=== PATIENT | male | born 1960 | race Caucasian/White ===

== ENCOUNTER 2022-05-02 06:54 | Emergency (ER) | payer MEDICARE, MEDICAID, SELFPAY ==
[2022-05-02 07:02] VITALS: BP 148/89; PULSE 90; RESP 18; TEMP 36.9; O2SAT 99
[2022-05-02] MEDS: Cephalexin 500 MG CAP PO (07:29)
--- NOTE | 2022-05-02 07:37 | ED.GENADUL_ITS ---
Discharge Plan Disposition Patient Disposition: HOME Condition: Improving Discharge Details Clinical Impression: Laceration of toe ED Provider: Scot Rosales Home Meds and New Rx's Prescriptions: New cephalexin 500 mg capsule 500 mg PO QID 7 Days Qty: 28 0RF cephalexin 500 mg capsule 500 mg PO QID 5 Days Qty: 20 0RF No Action acetaminophen 325 mg Tablet 650 mg PO Q6H PRN lidocaine 4 % Adhesive Patch,Medicated 1 patch TOPICAL DAILY Rx Instructions: right shoulder sevelamer HCl 800 mg Tablet 800 mg PO AC allopurinol 100 mg Tablet 50 mg PO DAILY pantoprazole 20 mg Tablet,Delayed Release (Dr/Ec) 40 mg PO DAILY magnesium hydroxide 400 mg/5 mL Suspension 30 ml PO DAILY PRN sodium bicarbonate 650 mg Tablet 650 mg PO TID bisacodyl [Dulcolax (bisacodyl)] 10 mg Suppository 10 mg CA DAILY Fleet Enema 19-7 gram/118 mL Enema 118 ml CA DAILY ibuprofen 200 mg Tablet 400 mg PO Q6H PRN camphor-menthol 0.5-0.5 % Lotion 1 applic TOPICAL TID PRN Kristel-Kristen 0.8 mg Tablet 1 tab PO DAILY simethicone 125 mg Tablet 125 mg PO Q6H PRN betamethasone dipropionate 0.05 % Ointment 1 applic TOPICAL BID colestipol 1 gram Tablet 2 g PO BID Multivitamin w/Minerals, Iron Tablet 1 tab PO DAILY escitalopram oxalate 5 mg Tablet 5 mg PO DAILY cholecalciferol (vitamin D3) 25 mcg (1,000 unit) Tablet 25 mcg PO DAILY Discharge Instructions Instructions: Laceration (ED) Additional Instructions: Please follow-up with your primary care physician. Please return to emergency department if you develop any signs of worsening bleeding or infection. Medical Decision Making 60-year-old male history of diabetes, CKD on dialysis, wheelchair-bound, left lower extremity amputation, presents after lacerating third and fourth digit of right foot on metal plate attached to wheelchair, third toe laceration hemostatic on arrival with good scab formation, fourth toe laceration mildly gaping with venous oozing, wounds irrigated, no foreign bodies appreciated, 2 simple interrupted 4-0 Vicryl sutures applied to fourth toe laceration due to chronic diabetic neuropathy patient did not have sensation to wound sites and did not require local anesthetic, skin glue applied to both wounds, good hemostasis, given diabetic status was started on empiric antibiotics, tetanus booster updated. Patient to follow-up with his home nursing staff who will change his lower extremity dressings, is going to dialysis this morning. Home care instructions and return precautions given. HPI General Date/Time Provider Initiated Documentation: 05/02/22 07:06 . HPI Narrative: 61-year-old male history of diabetes, left lower extremity amputation, presents after accidentally lacerating 2 of his toes on a piece of metal on his motorized wheelchair. Patient is on dialysis and is intermittently heparinized, had a fair amount of bleeding before arrival seems to be slowing down at this time. Unknown last tetanus shot. Related Data Home Medications Medication Instructions Recorded Confirmed acetaminophen 325 mg tablet 650 mg PO Q6H PRN 05/02/22 05/02/22 allopurinol 100 mg tablet 50 mg PO DAILY 05/02/22 05/02/22 betamethasone dipropionate 0.05 % 1 applic topical BID 05/02/22 05/02/22 topical ointment bisacodyl 10 mg rectal suppository 10 mg CA DAILY 05/02/22 05/02/22 (Dulcolax (bisacodyl)) camphor-menthol 0.5 %-0.5 % lotion 1 applic topical TID PRN 05/02/22 05/02/22 cephalexin 500 mg capsule 500 mg PO QID 5 days #20 caps 05/02/22 cephalexin 500 mg capsule 500 mg PO QID 7 days #28 caps 05/02/22 cholecalciferol (vitamin D3) 25 25 mcg PO DAILY 05/02/22 05/02/22 mcg (1,000 unit) tablet colestipol 1 gram tablet 2 g PO BID 05/02/22 05/02/22 escitalopram oxalate 5 mg tablet 5 mg PO DAILY 05/02/22 05/02/22 geriatric gxygudcb-vele-xqdg 1 tab PO DAILY 05/02/22 05/02/22 ibuprofen 200 mg tablet 400 mg PO Q6H PRN 05/02/22 05/02/22 lidocaine 4 % topical patch 1 patch topical DAILY 05/02/22 05/02/22 magnesium hydroxide 400 mg/5 mL 30 ml PO DAILY PRN 05/02/22 05/02/22 oral suspension pantoprazole 20 mg tablet,delayed 40 mg PO DAILY 05/02/22 05/02/22 release sevelamer HCl 800 mg tablet 800 mg PO AC 05/02/22 05/02/22 simethicone 125 mg tablet 125 mg PO Q6H PRN 05/02/22 05/02/22 sodium bicarbonate 650 mg tablet 650 mg PO TID 05/02/22 05/02/22 sodium phosphates 19 gram-7 118 ml CA DAILY 05/02/22 05/02/22 gram/118 mL enema (Fleet Enema) vitamin B complex-vitamin C-folic 1 tab PO DAILY 05/02/22 05/02/22 acid 0.8 mg tablet (Kristel-Kristen) Previous Rx's Medication Instructions Recorded cephalexin 500 mg capsule 500 mg PO QID 5 days #20 caps 05/02/22 cephalexin 500 mg capsule 500 mg PO QID 7 days #28 caps 05/02/22 Allergies Allergy/AdvReac Type Severity Reaction Status Date / Time No Known Allergies Allergy Unverified 05/02/22 07:08 General Stated Complaint: Laceration SABI: 4 Review of Systems Narrative: Review of Systems Constitutional: negative Eyes: negative ENT: negative Cardiovascular: negative Respiratory: negative Gastrointestinal: negative : negative Musculoskeletal: negative Skin: 2 lacerations Neurologic: negative Psych: negative PFSH All Active Problems (Updated 05/02/22 @ 07:42 by Scot Rosales MD) Laceration of toe (Acute) Social History Smoking/Tobacco Use Status: Never Smoking risk assessment performed?: Yes Alcohol Intake: former Substance use type: does not use Do you feel safe at home: Yes Do you feel safe in your relationship?: Yes Exam Narrative Exam Narrative: Physical Examination General: alert, awake, cooperative, resting comfortably, no acute distress HEENT: normocephalic, atraumatic; PERRL, EOM intact, conjunctiva normal; no nasal discharge; moist mucous membranes, oral and pharyngeal mucosa normal, tolerating secretions Neck: supple, trachea midline; full ROM Chest: normal to inspection Respiratory: normal respiratory effort, speaking in full sentences, clear to auscultation, no wheezing, rales or rhonchi Cardiac: regular rate, regular rhythm, S1S2 intact, no murmurs rubs or gallops GI: abdomen soft, non-tender, non-distended; no palpable mass or hepatosplenomegaly Skin: 2 cm superficial laceration to plantar aspect of fourth toe of right foot, 1 cm superficial laceration to plantar aspect of third toe right foot, the laceration of the third toe is hemostatic not gaping already has formed a good scab, the laceration on the fourth toe has slow venous oozing and was mildly gaping, no foreign bodies appreciated Neuro: AAOx3, normal speech, moving all extremities Extremities: See skin exam Psych: Appropriate mood and affect Course Vital Signs Vital signs: Vital Signs Temperature 36.9 C 05/02/22 07:02 Pulse 90 05/02/22 07:02 Respiratory Rate 18 05/02/22 07:02 Blood Pressure 148/89 H 05/02/22 07:02 Pulse Oximetry 99 05/02/22 07:02 Temperature 36.9 C 05/02/22 07:02 Temperature Source Temporal Artery Scan 05/02/22 07:02 Pulse 90 05/02/22 07:02 Respiratory Rate 18 05/02/22 07:02 Respiratory Effort Non-Labored 05/02/22 07:07 Blood Pressure 148/89 H 05/02/22 07:02 Blood Pressure Position Sitting 05/02/22 07:02 Pulse Oximetry 99 05/02/22 07:02 Oxygen Delivery Method Room Air 05/02/22 07:02 Oxygen Flow Rate 0 05/02/22 07:02 Pain Level 0 05/02/22 07:02 Procedures Laceration Laceration 1: Site: lower extremity (3rd and 4th toes, plantar) Side (If applicable): right Size (cm): 2 Description: linear Depth: simple, single layer Pre-repair: wound explored and irrigated extensively Skin layer closed with: vicryl Size (cm): 4-0 Number of sutures: 2
== END 2022-05-02 08:19 | disposition home or self-care (01) ==
PROVIDERS: Emergency Provider Emergency Medicine; PCP Family Medicine
DX: S91.114A Laceration without foreign body of right lesser toe(s) without damage to nail, initial encounter (principal); W26.8XXA Contact with other sharp object(s), not elsewhere classified, initial encounter
CPT/HCPCS: 12001; 90471

== ENCOUNTER 2022-07-25 15:09 | Outpatient (REF) | payer MEDICARE, MEDICAID, SELFPAY ==
[2022-07-25 13:23] LABS: Abs Immature Grans 0.07 10^3/uL (0.0-0.06); Absolute Basophil Count 0.04 10^3/uL (0.0-0.2); Absolute Eosinophil Count 0.27 10^3/uL (0.0-0.7); Absolute Monocyte Count 0.58 10^3/uL (0.1-0.8); Absolute Neutrophil Count 6.49 10^3/uL (1.2-6.7); Basophils % 0.4; Eosinophils % 2.8; HCT 32.1 % (40.0-50.0); HGB 9.9 g/dL (13.5-17.5); Immature Grans % 0.7; Lymphocytes % 22.8; MCH 30.6 pg (27.0-33.0); MCHC 30.8 % (32.0-36.0); MCV 99 fL (80-95); MPV 10.3 fL (8.0-11.0); Neutrophils % 67.3; Platelet Count 159 10^3/uL (130-400); RBC 3.24 10^6/uL (4.36-5.78); RDW 16.4 % (11.8-14.1); RDW-SD 59.4 fL; WBC 9.65 10^3/uL (4.4-10.8)
[2022-07-25 13:36] LABS: ALT 21 U/L (16-63); AST 21 U/L (15-37); Albumin 3.2 g/dL (3.4-5.0); Alkaline Phosphatase 113 U/L (46-116); Anion Gap 10.7 mmol/L (3-11); BUN 66 mg/dL (7-18); Bilirubin, Total 0.5 mg/dL (0.2-1.0); CO2 24.3 mmol/L (21.0-32.0); Calcium 8.8 mg/dL (8.5-10.1); Chloride 105 mmol/L (98-107); Estimated GFR 10.26 (mL/min/1.73m2); Glucose 126 mg/dL (74-106); Magnesium 1.7 mg/dL (1.8-2.4); NT-proBNP 1613 pg/mL (<300); Potassium 5.3 mmol/L (3.5-5.1); Sodium 140 mmol/L (136-145); Total Protein 7.7 g/dL (6.4-8.2)
[2022-07-25 14:05] LABS: CREATININE 5.8 mg/dL (0.70-1.30)
== END 2022-07-25 15:10 | disposition home or self-care (01) ==
LOC: LBN 15:09
PROVIDERS: PCP Family Medicine; Visit Provider Family Medicine
DX: I50.9 Heart failure, unspecified (principal)
CPT/HCPCS: 80053; 83735; 83880; 85025

== ENCOUNTER 2022-11-23 11:19 | Outpatient (CLI) | payer MEDICARE, MEDICAID, SELFPAY ==
--- NOTE | 2022-11-23 | DI.RAD_ITS ---
Exam(s) XR CHEST 2V PA LATERAL EXAM: XR CHEST 2V PA LATERAL CLINICAL HISTORY: CHEST PAIN TECHNIQUE: 2D digital imaging was performed of the chest. Two images were obtained. PA and lateral views were obtained. COMPARISON: No exams were available for comparison FINDINGS: MEDIASTINUM: Normal. HEART: Normal. PULMONARY VASCULATURE: Normal. LUNGS: Linear infiltrates are seen in the left lung base. PLEURAL SPACE: There is a left pleural effusion present. No right pleural effusion. No pneumothorax . BONE:Within normal limits for the patient's age. OTHER FINDINGS:The tip of the dual lumen catheter appears in good position. IMPRESSION: Left pleural effusion and left basilar atelectasis and/or pneumonia. DATA REPOSITORY: RADIATION DOSE DELIVERED:
== END 2022-11-23 11:39 ==
PROVIDERS: PCP Family Medicine; Visit Provider Family Medicine
DX: R07.89 Other chest pain (principal); J90 Pleural effusion, not elsewhere classified; R91.8 Other nonspecific abnormal finding of lung field
CPT/HCPCS: 71046

== ENCOUNTER 2023-05-07 16:53 | Outpatient (REF) | payer MEDICARE, MEDICAID, SELFPAY ==
[2023-05-07 19:43] LABS: Vitamin D 25 Total 32.6 ng/mL (30-100)
== END 2023-05-07 16:54 | disposition home or self-care (01) ==
LOC: LBN 16:53
PROVIDERS: PCP Family Medicine; Visit Provider Family Medicine
DX: E44.0 Moderate protein-calorie malnutrition (principal)
CPT/HCPCS: 82306

== ENCOUNTER 2023-12-25 04:17 | Emergency (ER) | payer MEDICARE, MEDICAID, SELFPAY ==
[2023-12-25] VITALS (38 sets, daily range): BP systolic 104–151; BP diastolic 36–127; PULSE 35–97; RESP 15–27; TEMP 37.1; O2SAT 88–95
--- NOTE | 2023-12-25 04:15 | RT.EKG_ITS ---
APPROVED REPORT Exam: Resting ECG Reason for Exam: LOW PULSE Patient Location: E HR:46 bpm ECG Measurements Heart Rate 46 AXIS NM 300 P 29 QRSd 159 QRS -59 QT 530 T -6 QTc 462 Conclusion bradycardia...rate< 60 Atrial premature complexes...SV complexes w/ short R-R intvls Prolonged NM interval...NM >230, V-rate 30- 49 Right bundle branch block...QRSd>120, terminal axis(90,270) Inferior infarct, old...Q >35mS, II III aVF indeterminate rhythm, consider 3rd degree block with PACs
--- NOTE | 2023-12-25 04:45 | RT.EKG_ITS ---
APPROVED REPORT Exam: Resting ECG Reason for Exam: bradycardia Patient Location: E HR:39 bpm ECG Measurements Heart Rate 39 AXIS OH 273 P 0 QRSd 182 QRS -34 QT 551 T 5 QTc 447 Conclusion Prolonged OH interval...OH >230, V-rate 30- 49 Right bundle branch block...QRSd>120, terminal axis(90,270) Probable lateral infarct, old...Q>35mS, abnormal ST-T, V5-6 I aVL indeterminate rhythm, consider 3rd degree block with PACs
[2023-12-25 05:12] LABS: Abs Immature Grans 0.06 10^3/uL (0.0-0.06); Absolute Basophil Count 0.06 10^3/uL (0.0-0.2); Absolute Eosinophil Count 0.12 10^3/uL (0.0-0.7); Absolute Neutrophil Count 9.27 10^3/uL (1.2-6.7); Basophils % 0.5; Eosinophils % 0.9; HCT 33.6 % (40.0-50.0); HGB 10.6 g/dL (13.5-17.5); Immature Grans % 0.5; Lymphocytes % 17.2; MCH 30.9 pg (27.0-33.0); MCHC 31.5 % (32.0-36.0); MCV 98 fL (80-95); MPV 9.5 fL (8.0-11.0); Monocytes % 9.5; Neutrophils % 71.4; Platelet Count 216 10^3/uL (130-400); RBC 3.43 10^6/uL (4.36-5.78); RDW 16.3 % (11.8-14.1); WBC 12.99 10^3/uL (4.4-10.8)
[2023-12-25 05:14] LABS: Absolute Lymphocyte Count 2.23 10^3/uL (1.2-3.4); Absolute Monocyte Count 1.23 10^3/uL (0.1-0.8)
--- NOTE | 2023-12-25 05:15 | W.ED.GENAD ---
Discharge Plan Disposition Patient Disposition: Transfer-Acute Inpatient Care Specific Acute Inpt Facility: [facility] Condition: Critical Discharge Details Clinical Impression: Complete heart block, ESRD (end stage renal disease) Primary Care Provider: Terrence Sam ED Provider: Michelle Carlisle Home Meds and New Rx's Prescriptions: No Action acetaminophen 325 mg Tablet 650 mg PO Q6H PRN lidocaine 4 % Adhesive Patch,Medicated 1 patch TOPICAL DAILY Rx Instructions: right shoulder sevelamer HCl 800 mg Tablet 800 mg PO AC allopurinol 100 mg Tablet 50 mg PO DAILY pantoprazole 20 mg Tablet,Delayed Release (Dr/Ec) 40 mg PO DAILY magnesium hydroxide 400 mg/5 mL Suspension 30 ml PO DAILY PRN sodium bicarbonate 650 mg Tablet 650 mg PO TID bisacodyl [Dulcolax (bisacodyl)] 10 mg Suppository 10 mg IN DAILY Fleet Enema 19-7 gram/118 mL Enema 118 ml IN DAILY ibuprofen 200 mg Tablet 400 mg PO Q6H PRN camphor-menthol 0.5-0.5 % Lotion 1 applic TOPICAL TID PRN Kristel-Kristen 0.8 mg Tablet 1 tab PO DAILY simethicone 125 mg Tablet 125 mg PO Q6H PRN betamethasone dipropionate 0.05 % Ointment 1 applic TOPICAL BID colestipol 1 gram Tablet 2 g PO BID Multivitamin w/Minerals, Iron Tablet 1 tab PO DAILY escitalopram oxalate 5 mg Tablet 5 mg PO DAILY cholecalciferol (vitamin D3) 25 mcg (1,000 unit) Tablet 25 mcg PO DAILY furosemide 80 mg tablet 80 mg PO BID ketoconazole 2 % shampoo 1 applic TOPICAL Q14D glucagon 1 mg kit Insta-Glucose 77.4% sevelamer carbonate [Renvela] 800 mg tablet lidocaine HCl [Aspercreme (lidocaine HCl)] 4 % cream 1 applic topical ONCE guaifenesin 100 mg/5 mL liquid 200 mg PO ONCE loperamide 2 mg capsule 2 mg PO Q6H PRN Discharge Instructions Referrals: Terrence Sam [Primary Care Provider] - [facility] General Mode of arrival: ambulatory. Date/Time Provider Initiated Documentation: 12/25/23 04:55. Limitations to Documentation: no limitations. Information obtained by: patient. HPI Narrative: 63yo M with ESRD dialysis M/W/F, DM, wheelchair-bound, left lower extremity amputation, presenting for low heart rate. [facility] was found to have HR in mid 30's. Patient reports staff wanted to call ambulance but he refused, drove himself to the ED. He reports his HR is usually in the 40's-50's. He denies any symptoms including chest pain, shortness of breath, lightheadedness, syncope, presyncope. He denies prior cardiac history, states he does not have a community placement worker. He is otherwise in his usual state of health with no fevers, chills, rash, nausea, vomiting, abdominal pain, numbness, tinlging, weakness, or other concerns. Related Data Home Medications Medication Instructions Recorded Confirmed acetaminophen 325 mg tablet 650 mg PO Q6H PRN 05/02/22 12/25/23 allopurinol 100 mg tablet 50 mg PO DAILY 05/02/22 12/25/23 betamethasone dipropionate 0.05 % 1 applic topical BID 05/02/22 12/25/23 topical ointment bisacodyl 10 mg rectal suppository 10 mg IN DAILY 05/02/22 12/25/23 (Dulcolax (bisacodyl)) camphor-menthol 0.5 %-0.5 % lotion 1 applic topical TID PRN 05/02/22 12/25/23 cholecalciferol (vitamin D3) 25 25 mcg PO DAILY 05/02/22 12/25/23 mcg (1,000 unit) tablet colestipol 1 gram tablet 2 g PO BID 05/02/22 12/25/23 escitalopram oxalate 5 mg tablet 5 mg PO DAILY 05/02/22 12/25/23 geriatric qftlsozy-mogp-vluw 1 tab PO DAILY 05/02/22 12/25/23 ibuprofen 200 mg tablet 400 mg PO Q6H PRN 05/02/22 05/02/22 lidocaine 4 % topical patch 1 patch topical DAILY 05/02/22 05/02/22 magnesium hydroxide 400 mg/5 mL 30 ml PO DAILY PRN 05/02/22 05/02/22 oral suspension pantoprazole 20 mg tablet,delayed 40 mg PO DAILY 05/02/22 12/25/23 release sevelamer HCl 800 mg tablet 800 mg PO AC 05/02/22 05/02/22 simethicone 125 mg tablet 125 mg PO Q6H PRN 05/02/22 12/25/23 sodium bicarbonate 650 mg tablet 650 mg PO TID 05/02/22 12/25/23 sodium phosphates 19 gram-7 118 ml IN DAILY 05/02/22 12/25/23 gram/118 mL enema (Fleet Enema) vitamin B complex-vitamin C-folic 1 tab PO DAILY 05/02/22 05/02/22 acid 0.8 mg tablet (Kristel-Kristen) Insta-Glucose 77.4% 12/25/23 furosemide 80 mg tablet 80 mg PO BID 12/25/23 12/25/23 glucagon 1 mg injection kit mg 12/25/23 guaifenesin 100 mg/5 mL oral liquid 200 mg PO ONCE 12/25/23 12/25/23 ketoconazole 2 % shampoo 1 applic topical Q14D 12/25/23 12/25/23 lidocaine HCl 4 % topical cream 1 applic topical ONCE 12/25/23 12/25/23 (Aspercreme (lidocaine HCl)) loperamide 2 mg capsule 2 mg PO Q6H PRN 12/25/23 12/25/23 sevelamer carbonate 800 mg tablet mg 12/25/23 (Renvela) Allergies Allergy/AdvReac Type Severity Reaction Status Date / Time No Known Allergies Allergy Unverified 12/25/23 04:32 General Stated Complaint: GenMedical SABI: 3 Review of Systems Narrative: see HPI Exam Narrative Exam Narrative: General: Alert, well appearing, well nourished, in no acute distress. Head: Normocephalic, atraumatic Neck: Trachea midline, ?Neck supple. ENT: ?MMM.? No oropharygeal lesions or exudate. Cardiac: ?Bradycardiac, regular, no murmurs appreciated Resp: No respiratory distress. CTAB. Abd: ?Soft, non-distended, nontender : ?No suprapubic tenderness. No CVA tenderness. Extremities: LLE amputation. .? No peripheral edema. Neurologic: GCS 15. ? Moves all extremities freely against gravity Course Vital Signs Vital signs: Vital Signs Temperature 37.1 C 12/25/23 04:30 Pulse 48 L 12/25/23 04:30 Respiratory Rate 20 12/25/23 04:30 Blood Pressure 141/58 H 12/25/23 04:30 Pulse Oximetry 95 12/25/23 04:30 Temperature 37.1 C 12/25/23 04:30 Temperature Source Temporal Artery Scan 12/25/23 04:30 Pulse 48 L 12/25/23 04:30 Respiratory Rate 20 12/25/23 04:30 Respiratory Effort Normal, Non-Labored 12/25/23 04:33 Blood Pressure 141/58 H 12/25/23 04:30 Blood Pressure Position Sitting 12/25/23 04:30 Pulse Oximetry 95 12/25/23 04:30 Oxygen Delivery Method Room Air 12/25/23 04:30 Oxygen Flow Rate 0 12/25/23 04:30 Pain Level 0 12/25/23 04:30 Lab/Test Results Lab/Test Results: Laboratory Tests Range/Units 12/25/23 05:00 WBC (4.4-10.8) 10^3/uL 12.99 H RBC (4.36-5.78) 10^6/uL 3.43 L Hgb (13.5-17.5) g/dL 10.6 L Hct (40.0-50.0) % 33.6 L MCV (80-95) fL 98 H MCH (27.0-33.0) pg 30.9 MCHC (32.0-36.0) % 31.5 L RDW (11.8-14.1) % 16.3 H Plt Count (130-400) 10^3/uL 216 MPV (8.0-11.0) fL 9.5 Immature Gran % 0.5 Neutrophils % 71.4 Lymphocytes % 17.2 Monocytes % 9.5 Eosinophils % 0.9 Basophils % 0.5 Nucleated RBC % (0.0-0.3) % 0.0 Absolute Neutrophils (1.2-6.7) 10^3/uL 9.27 H Absolute Lymphocytes (1.2-3.4) 10^3/uL 2.23 Absolute Monocytes (0.1-0.8) 10^3/uL 1.23 H Absolute Eosinophils (0.0-0.7) 10^3/uL 0.12 Absolute Basophils (0.0-0.2) 10^3/uL 0.06 Medical Decision Making 63yo M with ESRD dialysis M/W/F, DM, wheelchair-bound, left lower extremity amputation, presenting for low heart rate. [facility] was found to have HR in mid 30's. Patient denies any symptoms with this. HR in 30's-40's on arrival, vital signs otherwise reassuring, BP 140's/50's. Benign physical exam, appears well perfused. EKG RBBB, bradycardiac with rate in 40's, indeterminate rhythm; no ST segment or T wave abnormalities to suggest occlusive WA. Repeat EKG essentially the same, possibly complete heart block +PACs. Does not appear to be sinus bradycardia or 1st or 2nd degree block. Transfered to resus room and placed on pads. Labs reviewed as below, CBC & CMP consistent with known chronic disease processes with no actionable abnormalities, troponin negative, BNP elevated ~17,000 (on [facility] record review has been ~2,000 in the past); patient deneis hx of heart failure. Patient remains asymptomatic and normotensive to borderline hypertensive. [place] [facility] [place] EKG read as 3rd degree block, patient accepted under Dr. Ervin for pacer placement. Will be transfered via disability attorney, ED staff working on identifying service. Signed out to oncoming physician pending transport. A follow-on note will only be written if there is a change in patient status or condition. Medical Records Medical records reviewed: Yes I reviewed the patient's medical records. Lab Data Lab results reviewed: Yes I reviewed the patient's lab results. Labs: Laboratory Tests Range/Units 12/25/23 05:00 WBC (4.4-10.8) 10^3/uL 12.99 H RBC (4.36-5.78) 10^6/uL 3.43 L Hgb (13.5-17.5) g/dL 10.6 L Hct (40.0-50.0) % 33.6 L MCV (80-95) fL 98 H MCH (27.0-33.0) pg 30.9 MCHC (32.0-36.0) % 31.5 L RDW (11.8-14.1) % 16.3 H Plt Count (130-400) 10^3/uL 216 MPV (8.0-11.0) fL 9.5 Immature Gran % 0.5 Neutrophils % 71.4 Lymphocytes % 17.2 Monocytes % 9.5 Eosinophils % 0.9 Basophils % 0.5 Nucleated RBC % (0.0-0.3) % 0.0 Absolute Neutrophils (1.2-6.7) 10^3/uL 9.27 H Absolute Lymphocytes (1.2-3.4) 10^3/uL 2.23 Absolute Monocytes (0.1-0.8) 10^3/uL 1.23 H Absolute Eosinophils (0.0-0.7) 10^3/uL 0.12 Absolute Basophils (0.0-0.2) 10^3/uL 0.06 PT (9.1-11.1) sec 12.5 H INR (0.9-1.1) 1.3 H APTT (23.6-32.8) sec 28.4 Sodium (136-145) mmol/L 137 Potassium (3.5-5.1) mmol/L 4.0 Chloride (98-107) mmol/L 98 Carbon Dioxide (21.0-32.0) mmol/L 27.1 Anion Gap (3-11) mmol/L 11.9 H BUN (7-18) mg/dL 66 H Creatinine (0.70-1.30) mg/dL 6.6 H* Est GFR (CKD-EPI 2020) (mL/min/1.73m2) 8.68 Glucose (74-106) mg/dL 133 H Calcium (8.5-10.1) mg/dL 8.6 Magnesium (1.8-2.4) mg/dL 1.9 Total Bilirubin (0.2-1.0) mg/dL 1.0 AST (15-37) U/L 16 ALT (16-63) U/L 29 Alkaline Phosphatase (46-116) U/L 168 H Troponin I (< or =60) ng/L < 50 NT-Pro-B Natriuret Pep (<300) pg/mL 27863 H Total Protein (6.4-8.2) g/dL 7.5 Albumin (3.4-5.0) g/dL 2.8 L Quality:SDOH Health Related Social Needs: No Data to Display Critical Care Time Critical Care Time Total Critical Care Time: 34 Attestation: Due to a high probability of clinically significant, life threatening deterioration, the patient required my highest level of preparedness to intervene emergently and I personally spent this critical care time directly and personally managing the patient. This critical care time included obtaining a history; examining the patient; pulse oximetry; ordering and review of studies; arranging urgent treatment with development of a management plan; evaluation of patient's response to treatment; frequent reassessment; and, discussions with other providers. This critical care time was performed to assess and manage the high probability of imminent, life-threatening deterioration that could result in multi-organ failure. It was exclusive of separately billable procedures? PFSH All Active Problems (Updated 12/25/23 @ 06:52 by Michelle Carlisle MD) ESRD (end stage renal disease) (Acute) Complete heart block (Acute) Wears hearing aid in both ears (Acute) Social History Smoking/Tobacco Use Status: Never Smoking risk assessment performed?: Yes Alcohol Intake: former Drug use: Never Substance use type: does not use Housing: custodial Do you feel safe at home: Yes Do you feel safe in your relationship?: Yes
[2023-12-25 05:24] LABS: INR 1.3 (0.9-1.1); PTT Activated 28.4 sec (23.6-32.8); Prothrombin Time 12.5 sec (9.1-11.1)
[2023-12-25 05:33] LABS: ALT 29 U/L (16-63); AST 16 U/L (15-37); Albumin 2.8 g/dL (3.4-5.0); Alkaline Phosphatase 168 U/L (46-116); Anion Gap 11.9 mmol/L (3-11); BUN 66 mg/dL (7-18); CO2 27.1 mmol/L (21.0-32.0); Calcium 8.6 mg/dL (8.5-10.1); Chloride 98 mmol/L (98-107); Estimated GFR 8.68 (mL/min/1.73m2); Glucose 133 mg/dL (74-106); Magnesium 1.9 mg/dL (1.8-2.4); NT-proBNP 17651 pg/mL (<300); Sodium 137 mmol/L (136-145); Total Protein 7.5 g/dL (6.4-8.2); Troponin I < 50 ng/L (< or =60)
[2023-12-25 05:35] LABS: CREATININE 6.6 mg/dL (0.70-1.30)
--- NOTE | 2023-12-25 10:25 | NUR.NOTE ---
Nursing Note: patient c/o back pain multiple times d/t bed being uncomfortable this RN offered to help paint to get in a more comfortable postion, offered pillows and to lay on side pt stated its not going to work anyway.
[2023-12-26 09:41] LABS: Lyme Ab w Rflx to Lyme Confirm Negative (Negative)
[2023-12-28 14:31] LABS: Anaplasma phagocytophilum Negative (Negative); B. miyamotoi PCR Negative (Negative); Babesia divergens/MO-1 Negative (Negative); Babesia duncani Negative (Negative); Babesia microti Negative (Negative); Ehrlichia chaffeensis Negative (Negative); Ehrlichia ewingii/canis Negative (Negative); Ehrlichia muris eauclairensis Negative (Negative)
== END 2023-12-25 12:34 | disposition short-term general hospital (02) ==
PROVIDERS: Emergency Provider Student in an Organized Health Care Education/Training Program; PCP Family Medicine
DX: I44.2 Atrioventricular block, complete (principal); I95.9 Hypotension, unspecified; I12.0 Hypertensive chronic kidney disease with stage 5 chronic kidney disease or end stage renal disease; N18.6 End stage renal disease; Z89.612 Acquired absence of left leg above knee; Z99.3 Dependence on wheelchair
CPT/HCPCS: 36415; 80053; 87798; 93005; 99285; 83735; 83880; 84484; 85025; 85610; 85730; 86618; 93010

== ENCOUNTER 2024-04-14 14:53 | Emergency (ER) | payer MEDICARE, MEDICAID, SELFPAY ==
[2024-04-14 14:43] VITALS: BP 101/57; PULSE 74; RESP 13; TEMP 36.3; O2SAT 96
--- NOTE | 2024-04-14 16:53 | ED.GENADUL_ITS ---
Discharge Plan Disposition Patient Disposition: Home Discharge Details Clinical Impression: Laceration of leg Primary Care Provider: Alec Zhang ED Provider: Archana Aviles Home Meds and New Rx's Prescriptions: New cephalexin 500 mg capsule 500 mg PO QID 5 Days Qty: 20 0RF Continued furosemide 80 mg tablet 80 mg PO BID Qty: 60 0RF allopurinol 100 mg tablet 50 mg PO DAILY Qty: 90 0RF sevelamer carbonate [Renvela] 800 mg tablet 2,400 mg PO TID Rx Instructions: 03/20/24-per Hitesh's rx is written by Dr. Marian Branch. directions are to take 3 tabs TID. furosemide 80 mg tablet 80 mg PO Q OTHER DAY Rx Instructions: 03/14/24-Pt reports he takes this on opposite days of dialysis- pantoprazole 20 mg tablet,delayed release (/EC) 40 mg PO DAILY Qty: 60 2RF Rx Instructions: *Pharmacy-please de-activate rx from 02/14/24 for the 30tab qty (03/25/24) acetaminophen 325 mg Tablet 650 mg PO Q6H PRN magnesium hydroxide 400 mg/5 mL Suspension 30 ml PO DAILY PRN sodium bicarbonate 650 mg Tablet 650 mg PO TID bisacodyl [Dulcolax (bisacodyl)] 10 mg Suppository 10 mg [place] DAILY ibuprofen 200 mg Tablet 400 mg PO Q6H PRN Kristel-Kristen 0.8 mg Tablet 1 tab PO DAILY simethicone 125 mg Tablet 125 mg PO Q6H PRN betamethasone dipropionate 0.05 % Ointment 1 applic TOPICAL BID geriatric [id number] Tablet 1 tab PO DAILY ketoconazole 2 % shampoo 1 applic TOPICAL Q14D loperamide 2 mg capsule 2 mg PO Q6H PRN Discharge Instructions Instructions: Wound Infection Additional Instructions: Call [facility] first thing in the morning to schedule follow-up appointment for reassessment in the next 2 to 3 days. I have prescribed an antibiotic to help prevent infection. Please take the full course as prescribed. Keep your wound clean and dry. Wash daily with antibacterial soap and water, apply thin layer of triple antibiotic ointment or bacitracin. Cover with a nonstick dressing. Elevate your leg above heart level. Keep an eye out for signs of infection such as redness, swelling, pus drainage, foul odor, increasing pain. If you notice any of these signs please return to care immediately Referrals: Alec Zhang DO [Primary Care Provider] - [facility] General Date/Time Provider Initiated Documentation: 04/14/24 15:36 . HPI Narrative: Zach is a 63-year-old male with medical history significant for ESRD on dialysis, lymphedema, HTN, T2DM who presents to the emergency department today for evaluation of right leg laceration. He uses a power wheelchair at home, hit a piece of furniture at home, causing his giron just below the knee to split open. This was able to be controlled with gauze. No other injuries reported. He denies history of immunocompromise. He has had left leg amputated. No recent antibiotic use or antibiotic allergies. Physical exam remarkable for linear gaping laceration just distal to right knee, approximately 10 cm in length to the anterior giron. There is a triangular avulsion noted to the lateral aspect of the laceration, edges unable to be approximated. Sensation is intact distally. Patient has usual range of motion to knee. Significant peripheral edema to right leg, patient does wear compression stockings for lymphedema. Wound was irrigated extensively with tap water and normal saline, explored to the base in a bloodless field. Local anesthetic was injected, 11 cc 2% lidocaine with epi with good effect. Edges were able to be approximated with 11 simple interrupted sutures, warm mattress sutures. A combination of 3-0 and 4-0 Ethilon sutures was used for skin closure. Patient tolerated procedure well. Will treat with Keflex for prophylaxis. Recommend follow-up with PCP in the next couple of days for reassessment. Wound care performed by nurse. Last Tdap 2021 Related Data Home Medications ?Medication ?Instructions ?Recorded ?Confirmed acetaminophen 325 mg tablet 650 mg PO Q6H PRN 05/02/22 03/27/24 betamethasone dipropionate 0.05 % 1 applic topical BID 05/02/22 03/27/24 topical ointment bisacodyl 10 mg rectal suppository 10 mg [place] DAILY 05/02/22 03/27/24 (Dulcolax (bisacodyl)) geriatric [id number] 1 tab PO DAILY 05/02/22 03/27/24 ibuprofen 200 mg tablet 400 mg PO Q6H PRN 05/02/22 03/27/24 magnesium hydroxide 400 mg/5 mL 30 ml PO DAILY PRN 05/02/22 03/27/24 oral suspension simethicone 125 mg tablet 125 mg PO Q6H PRN 05/02/22 03/27/24 sodium bicarbonate 650 mg tablet 650 mg PO TID 05/02/22 03/27/24 vitamin B complex-vitamin C-folic 1 tab PO DAILY 05/02/22 03/27/24 acid 0.8 mg tablet (Kristel-Kristen) ketoconazole 2 % shampoo 1 applic topical Q14D 12/25/23 03/27/24 loperamide 2 mg capsule 2 mg PO Q6H PRN 12/25/23 03/27/24 furosemide 80 mg tablet 80 mg PO BID #60 tabs 01/24/24 03/27/24 allopurinol 100 mg tablet 50 mg (1/2 x 100 mg) PO DAILY #90 02/14/24 03/27/24 tabs sevelamer carbonate 800 mg tablet 2,400 mg PO TID 03/10/24 03/27/24 (Renvela) furosemide 80 mg tablet 80 mg PO Q OTHER DAY 03/14/24 03/27/24 pantoprazole 20 mg tablet,delayed 40 mg (2 x 20 mg) PO DAILY #60 tabs 03/25/24 03/27/24 release cephalexin 500 mg capsule 500 mg PO QID 5 days #20 caps 04/14/24 Previous Rx's ?Medication ?Instructions ?Recorded furosemide 80 mg tablet 80 mg PO BID #60 tabs 01/24/24 allopurinol 100 mg tablet 50 mg (1/2 x 100 mg) PO DAILY #90 02/14/24 tabs pantoprazole 20 mg tablet,delayed 40 mg (2 x 20 mg) PO DAILY #60 tabs 03/25/24 release cephalexin 500 mg capsule 500 mg PO QID 5 days #20 caps 04/14/24 Allergies Allergy/AdvReac Type Severity Reaction Status Date / Time No Known Allergies Allergy Unverified 04/14/24 14:48 General Stated Complaint: Laceration SABI: 4 Review of Systems Narrative: see HPI Exam Const General: cooperative, healthy appearing, comfortable and no acute distress Skin Trauma: laceration right lower leg linear (10 cm linear laceration with triangular avulsion to medial aspect) and sensation intact; no foreign bodies present and not contaminated Course Vital Signs Vital signs: Vital Signs Temperature 36.3 C L 04/14/24 14:43 Pulse 74 04/14/24 14:43 Respiratory Rate 13 04/14/24 14:43 Blood Pressure 101/57 L 04/14/24 14:43 Pulse Oximetry 96 04/14/24 14:43 Temperature 36.3 C L 04/14/24 14:43 Pulse 74 04/14/24 14:43 Respiratory Rate 13 04/14/24 14:43 Blood Pressure 101/57 L 04/14/24 14:43 Pulse Oximetry 96 04/14/24 14:43 Oxygen Delivery Method Room Air 04/14/24 14:43 Oxygen Flow Rate 0 04/14/24 14:43 Pain Level 9 04/14/24 14:43 Procedures Laceration Laceration 1: Site: lower extremity Side (If applicable): right Size (cm): 10 Description: linear and clean Depth: simple, single layer Local anesthetic: Lidocaine 2% and with Epi Amount of anesthesia used (mL): 10 Pre-repair: wound explored, irrigated extensively and deep structures intact Skin layer closed with: nylon Size (cm): 3-0 and 4-0 Number of sutures: 15 Technique: simple, interrupted (11) and horizontal mattress (4) Medical Decision Making Quality:SDOH Health Related Social Needs: No Data to Display PFSH All Active Problems (Updated 04/14/24 @ 18:15 by Archana Rodriguez) Laceration of leg (Acute) Wheelchair dependent (Chronic) ESRD on dialysis (Chronic) Lymphedema (Chronic) Anxiety disorder, unspecified (Acute 02/22/22) Major depressive disorder, recurrent, unspecified (Acute 02/22/22) Essential (primary) hypertension (Acute 02/22/22) Body mass index [BMI] 40.0-44.9, adult (Acute 12/29/23) Type 2 diabetes mellitus with other skin ulcer (Acute 02/22/22) Pacemaker (Acute) 12/31/23 Micra Medtronic placed 12/27/23 [place] [facility] [place] CHB. RH Wears hearing aid in both ears (Acute) Medical History (Updated 04/14/24 @ 18:15 by Archana Rodriguez) Age-related nuclear cataract, bilateral (02/22/22) Acquired absence of left leg below knee (02/22/22) Family History (Updated 01/24/24 @ 17:07 by Lena Hemphill) Father Anxiety Liver cancer Brother Bladder cancer Prostate cancer Mother Thyroid condition Social History (Updated 01/24/24 @ 17:02 by Lena Hemphill) Smoking/Tobacco Use Status: Never Second Hand Exposure: No Smoking risk assessment performed?: Yes Alcohol Intake: never Drug use: Never Substance use type: does not use Adopted: No Caregiver/Support person: No Foster care: No Household members: none Housing: apartment Number of Children: 0 number of grandchildren: 0 Communication Needs: None Education Level: high school Do you need help understanding health information?: Rarely current occupation: N/A Pets and animals: No Sexually active: No Do you think of yourself as: straight/heterosexual Current gender identity: male What is your relationship status?: never How often do you talk on the phone with friends or family?: three or more times per week How often do you get together with friends or relatives?: never Do you belong to any clubs or organized social groups?: no Panel score (0-1 are the most socially isolated patients): 1 What type of physical activity do you participate in: none Christin/Sikhism: None Special christin needs: No Seatbelt use: always Helmet use: No (Never) Drive intox or ride w/intox 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
[2024-04-14] MEDS: Cephalexin 500 MG CAP PO (18:36)
[2024-04-14 18:47] VITALS: BP 101/57; PULSE 74; RESP 13; TEMP 36.3; O2SAT 96
--- NOTE | 2024-04-14 19:51 | NUR.NOTE ---
Referral to PCP for LAC repair for the right chin to be seen in 2-3 days per FURNACE ERECTOR Leandra. Referral sent to pcp
== END 2024-04-14 18:47 | disposition home or self-care (01) ==
PROVIDERS: Emergency Provider Nurse Practitioner Family; PCP Family Medicine
DX: S81.811A Laceration without foreign body, right lower leg, initial encounter (principal); I12.0 Hypertensive chronic kidney disease with stage 5 chronic kidney disease or end stage renal disease; E11.22 Type 2 diabetes mellitus with diabetic chronic kidney disease; N18.6 End stage renal disease; I89.0 Lymphedema, not elsewhere classified; Z95.0 Presence of cardiac pacemaker; Z89.512 Acquired absence of left leg below knee; Z79.899 Other long term (current) drug therapy; W22.8XXA Striking against or struck by other objects, initial encounter; Y93.01 Activity, walking, marching and hiking; Y92.013 Bedroom of single-family (private) house as the place of occurrence of the external cause
CPT/HCPCS: 12004; 99283

== ENCOUNTER 2024-05-07 10:49 | Outpatient (CLI) | payer MEDICARE, MEDICAID, SELFPAY | END 2024-05-07 10:50 | disposition home or self-care (01) | LOC: DI.CARD 10:51 | PROVIDERS: PCP Family Medicine; Visit Provider Internal Medicine Cardiovascular Disease | DX: I44.2 Atrioventricular block, complete (principal); Z95.0 Presence of cardiac pacemaker | CPT/HCPCS: 93010 ==

== ENCOUNTER → 2024-05-07 11:31 | Outpatient (BNVA) | payer MEDICARE, MEDICAID, SELFPAY | PROVIDERS: PCP Family Medicine; Referring Provider Family Medicine; Visit Provider Internal Medicine Cardiovascular Disease | DX: Z95.810 Presence of automatic (implantable) cardiac defibrillator (principal); I44.2 Atrioventricular block, complete | CPT/HCPCS: 93005; 93279 ==

== ENCOUNTER → 2024-05-09 11:19 | Outpatient (BNVA) | payer MEDICARE, MEDICAID, SELFPAY | PROVIDERS: PCP Family Medicine; Referring Provider Family Medicine; Visit Provider Physical Therapy Assistant | DX: S71.101A Unspecified open wound, right thigh, initial encounter (principal); X58.XXXA Exposure to other specified factors, initial encounter; R60.0 Localized edema | CPT/HCPCS: 99203 ==

== ENCOUNTER 2024-05-20 05:48 | Emergency (ER) | payer MEDICARE, MEDICAID, SELFPAY ==
[2024-05-20] VITALS (25 sets, daily range): BP systolic 60–130; BP diastolic 31–69; PULSE 0–187; RESP 0–47; TEMP 36.9; O2SAT 91–96
--- NOTE | 2024-05-20 05:45 | RT.EKG_ITS ---
APPROVED REPORT Exam: Resting ECG Reason for Exam: weakness Patient Location: E HR:86 bpm ECG Measurements Heart Rate 86 AXIS NC [id number] P [id number] QRSd 186 QRS -65 QT 450 T 22 QTc 540 Conclusion Atrial flutter...A-rate 217 Right bundle branch block...QRSd>120, terminal axis(90,270) Probable lateral infarct, old...Q>35mS, abnormal ST-T, V5-6 I aVL I have reviewed and interpreted ECG and agree with software generated interpretation.
[2024-05-20] MEDS: Lactated Ringers 1,000 ML 1000 ML IV (06:09)
[2024-05-20 06:11] LABS: Abs Immature Grans 0.37 10^3/uL (0.0-0.06); Absolute Monocyte Count 0.75 10^3/uL (0.1-0.8); Absolute Neutrophil Count 29.51 10^3/uL (1.2-6.7); Basophils % 0.3 %; HCT 33.3 % (40.0-50.0); HGB 10.4 g/dL (13.5-17.5); Immature Grans % 1.2 %; MCH 29.5 pg (27.0-33.0); MCHC 31.2 % (32.0-36.0); MCV 95 fL (80-95); MPV 9.1 fL (8.0-11.0); Monocytes % 2.4 %; Neutrophils % 94.1 %; Platelet Count 236 10^3/uL (130-400); RBC 3.52 10^6/uL (4.36-5.78); RDW 14.6 % (11.8-14.1); RDW-SD 50.8 fL
[2024-05-20] MEDS: Ondansetron 4 MG/2 ML VIAL IVP (06:11)
[2024-05-20 06:14] LABS: Absolute Basophil Count 0.09 10^3/uL (0.0-0.2); Absolute Lymphocyte Count 0.63 10^3/uL (1.2-3.4); WBC 31.36 10^3/uL (4.4-10.8)
[2024-05-20 06:25] LABS: ALT 13 U/L (16-63); AST 29 U/L (15-37); Albumin 2.6 g/dL (3.4-5.0); Alkaline Phosphatase 200 U/L (46-116); Anion Gap 10.9 mmol/L (3-11); BUN 42 mg/dL (7-18); Bilirubin, Total 2.76 mg/dL (0.2-1.0); CO2 28.1 mmol/L (21.0-32.0); Calcium 8.3 mg/dL (8.5-10.1); Chloride 95 mmol/L (98-107); Estimated GFR 8.84 (mL/min/1.73m2); Glucose 105 mg/dL (74-106); Lipase 22 U/L (16-77); Potassium 3.8 mmol/L (3.5-5.1); Sodium 134 mmol/L (136-145); Total Protein 8.3 g/dL (6.4-8.2)
--- NOTE | 2024-05-20 06:26 | ED.GENADUL_ITS ---
Discharge Plan Disposition Patient Disposition: Discharge Details Chief Complaint: Dizzy/Sync Clinical Impression: Septic shock, Cardiac arrest, V tach, Dehydration, Nausea & vomiting Primary Care Provider: Alec Zhang ED Provider: Dillon Abernathy Home Meds and New Rx's Prescriptions: No Action betamethasone dipropionate 0.05 % ointment 1 applic TOPICAL BID PRN (Reason: psoriasis outbreak) Qty: 45 0RF mupirocin 2 % ointment 1 applic topical BID Qty: 50 0RF Rx Instructions: Apply liberally to laceration allopurinol 100 mg tablet 50 mg PO DAILY Qty: 90 0RF sevelamer carbonate [Renvela] 800 mg tablet 2,400 mg PO TID Rx Instructions: 03/20/24-per Hitesh's rx is written by Dr. Marian Branch. directions are to take 3 tabs TID. pantoprazole 20 mg tablet,delayed release (DR/EC) 40 mg PO DAILY Qty: 60 2RF Rx Instructions: *Pharmacy-please de-activate rx from 02/14/24 for the 30tab qty (03/25/24) HPI General Date/Time Provider Initiated Documentation: 05/20/24 05:50 . HPI Narrative: This is a 63-year-old male with a past medical history of obstructive sleep apnea, pacemaker, left-sided lower extremity amputation, chronic kidney disease on dialysis Sunday, heart failure, type 2 diabetes, chronic wounds on the right lower extremity, gout, psoriasis, who presents today for vomiting. Patient states that he had dialysis yesterday which was unremarkable. He went home, and has felt nauseous and has been vomiting ever since. He states that he has vomited 3-4 times since yesterday, he has also had diarrhea. He denies any blood. He has felt weak and dizzy, and has not been able to get up. He denies any fall or trauma. He denies any medication change. He is brought in by EMS who noted tachycardia and mild hypotension. Related Data Home Medications ?Medication ?Instructions ?Recorded ?Confirmed allopurinol 100 mg tablet 50 mg (1/2 x 100 mg) PO DAILY #90 02/14/24 05/20/24 tabs sevelamer carbonate 800 mg tablet 2,400 mg PO TID 03/10/24 05/20/24 (Renvela) pantoprazole 20 mg tablet,delayed 40 mg (2 x 20 mg) PO DAILY #60 tabs 03/25/24 05/20/24 release betamethasone dipropionate 0.05 % 1 applic topical BID PRN psoriasis 05/02/24 05/20/24 topical ointment outbreak #45 grams mupirocin 2 % topical ointment 1 applic topical BID #50 grams 05/02/24 05/20/24 Previous Rx's ?Medication ?Instructions ?Recorded allopurinol 100 mg tablet 50 mg (1/2 x 100 mg) PO DAILY #90 02/14/24 tabs pantoprazole 20 mg tablet,delayed 40 mg (2 x 20 mg) PO DAILY #60 tabs 03/25/24 release betamethasone dipropionate 0.05 % 1 applic topical BID PRN psoriasis 05/02/24 topical ointment outbreak #45 grams mupirocin 2 % topical ointment 1 applic topical BID #50 grams 05/02/24 Allergies Allergy/AdvReac Type Severity Reaction Status Date / Time No Known Allergies Allergy Verified 05/20/24 05:53 General Stated Complaint: Dizzy/Sync SABI: 3 Review of Systems All systems reviewed & are unremarkable except as noted in HPI and below Exam Narrative Exam Narrative: 1.Const: Well-nourished, Well-developed, appearing stated age 2.Eyes: PERRL, no conjunctival injection, and symmetrical lids. 3.ENT: Atraumatic external nose and ears. Dry MM. Neck: Symmetric, trachea midline, No thyromegaly. 4.CVS: +S1/S2, No murmurs or gallops. Peripheral pulses 2+ and equal in all extremities. Brisk capillary refill in all extremities. 5.RESP: Unlabored respiratory effort. Clear to auscultation bilaterally. No wheezes rales or rhonchi 6.GI: Soft, Nontender, mildly distended, No hepatosplenomegaly. No guarding or rebound. 7.MSK: Amputation of the left lower extremity, right lower extremity demonstrates notable chronic edema, right lower extremity was wrapped for wound care. Leg was unwrapped, the area that was wrapped is mildly warm, with some chronic wounds proximally and notable edema throughout. There is some erythema the right lower extremity with no left lower extremity for comparison. Some chronic skin changes for the toes on the right, but no active drainage. 8.Skin: Warm, Dry. No rashes or lesions. 9.Neuro: room service attendant II-XII grossly intact. Sensation grossly intact, no focal neurologic deficits. 10.Psych: (AAO) x3. Appropriate mood and affect Course Vital Signs Vital signs: Vital Signs Pulse 90 05/20/24 05:44 Respiratory Rate 20 05/20/24 05:44 Pulse Oximetry 93 05/20/24 05:44 Temperature 36.9 C 05/20/24 05:51 Temperature Source Oral 05/20/24 05:51 Pulse 90 05/20/24 05:44 Respiratory Rate 34 H 05/20/24 05:53 Respiratory Effort Non-Labored 05/20/24 05:53 Respiratory Depth Normal 05/20/24 05:53 Respiratory Pattern Normal 05/20/24 05:53 Blood Pressure Position Sitting 05/20/24 05:44 Pulse Oximetry 93 05/20/24 05:44 Oxygen Delivery Method Room Air 05/20/24 05:44 Oxygen Flow Rate 0 05/20/24 05:44 Lab/Test Results Lab/Test Results: 05/20/24 06:00 Blood Blood Culture - Pending 05/20/24 06:14 Blood Blood Culture - Pending Medical Decision Making This is a 63-year-old male with a past medical history of obstructive sleep apnea, pacemaker, left-sided lower extremity amputation, chronic kidney disease on dialysis Sunday, heart failure, type 2 diabetes, chronic wounds on the right lower extremity, gout, psoriasis, who presents today for vomiting. Patient states that he had dialysis yesterday which was unremarkable. He went home, and has felt nauseous and has been vomiting ever since. He states that he has vomited 3-4 times since yesterday, he has also had diarrhea. He denies any blood. He has felt weak and dizzy, and has not been able to get up. He denies any fall or trauma. He denies any medication change. He is brought in by EMS who noted tachycardia and mild hypotension. Exam demonstrates an obese male, some chronic wounds on his right lower extremity, but after unwrapping the leg there does seem to be some redness and warmth. No left lower extremity for comparison. Abdomen is slightly distended but nontender. Lungs demonstrate rhonchi throughout. Differential includes obstruction, gastroenteritis causing vomiting, dehydration, acute cellulitis of the right lower extremity, and potential aspiration pneumonia. No hypoxemia at this time, oxygen borderline at around 93%. He is afebrile currently. He is moderately hypotensive in the 70s systolic. Will rehydrate with a liter of fluids, give Zofran for nausea, start vancomycin Zosyn and doxycycline out of concern for sepsis/septic shock. Will monitor closely and reassess. 7:15 AM Nursing went in to start the antibiotics, as they were talking and interacting with the patient he suddenly stated that he did not feel so well. Shortly thereafter patient went unresponsive, and was found to be pulseless. CPR was started and multiple rounds were performed of high compressions CPR in total, epinephrine, calcium, magnesium and bicarb were given to the patient. There was a single episode of V. tach which received a synchronized 200 J cardioversion. Unfortunately aside for that single episode the patient was in either combination of PEA or eventually transitioned into complete asystole. After multiple rounds of CPR and medications, futility was noted as no improvement was being made whatsoever. Patient had no return of spontaneous cardiac activity. Patient's time of was called at 7:06 AM. Cause of likely combination of septic shock, chronic cardiovascular disease, chronic renal failure. I did contact the patient's sister Tahmina Bynum as well as his brother Jamin Angulo. I answered all questions. The patient will [place] [facility] [place] Quality:SDOH Health Related Social Needs: No Data to Display Critical Care Time Critical Care Time Critical Care Time: Yes Total Critical Care Time: 30 Attestation: Upon my evaluation, this patient had a high probability of imminent or life- threatening deterioration, which required my direct attention, intervention, and personal management. I have personally provided 30 minutes of critical care time exclusive of time spent on separately billable procedures. Time includes review of laboratory data, radiology results, discussion with consultants, and monitoring for potential decompensation. Interventions were performed as documented. [facility] All Active Problems (Updated 05/20/24 @ 07:54 by Dillon Abernathy DO) Nausea & vomiting (Acute) Dehydration (Acute) V tach (Chronic) Cardiac arrest (Acute) Septic shock (Acute) Complicated open wound of right thigh (Acute) Wheelchair dependent (Chronic) ESRD on dialysis (Chronic) Lymphedema (Chronic) Anxiety disorder, unspecified (Acute 02/22/22) Major depressive disorder, recurrent, unspecified (Acute 02/22/22) Essential (primary) hypertension (Acute 02/22/22) Body mass index [BMI] 40.0-44.9, adult (Acute 12/29/23) Type 2 diabetes mellitus with other skin ulcer (Acute 02/22/22) Pacemaker (Acute) 12/31/23 Micra Medtronic placed 12/27/23 [place] [facility] [place] CHB. RH Wears hearing aid in both ears (Acute) Medical History Complete heart block Age-related nuclear cataract, bilateral (02/22/22) Acquired absence of left leg below knee (02/22/22) Family History Father Anxiety Liver cancer Brother Bladder cancer Prostate cancer Mother Thyroid condition Social History Smoking/Tobacco Use Status: Never Second Hand Exposure: No Smoking risk assessment performed?: Yes Alcohol Intake: never Drug use: Never Substance use type: does not use Adopted: No Caregiver/Support person: No Foster care: No Household members: none Housing: apartment Number of Children: 0 number of grandchildren: 0 Communication Needs: None Education Level: high school Do you need help understanding health information?: Rarely current occupation: N/A Pets and animals: No Sexually active: No Do you think of yourself as: straight/heterosexual Current gender identity: male What is your relationship status?: never How often do you talk on the phone with friends or family?: three or more times per week How often do you get together with friends or relatives?: never Do you belong to any clubs or organized social groups?: no Panel score (0-1 are the most socially isolated patients): 1 What type of physical activity do you participate in: none Christin/Samaritan: None Special christin needs: No Seatbelt use: always Helmet use: No (Never) Drive intox or ride w/intox 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
[2024-05-20 06:32] LABS: CREATININE 6.5 mg/dL (0.70-1.30)
[2024-05-20 06:36] LABS: Diff Comment Agrees w/ Instrument; RBC Morphology Normal
[2024-05-20] MEDS: PIPERACILLIN/TAZO 3.375 GM in Normal Saline 50 ML IVPB (06:40)
[2024-05-20 06:42] LABS: Lactate 3.2 mmol/L (0.6-1.4)
[2024-05-20 07:06] LABS: Procalcitonin 7.5 ng/mL
--- NOTE | 2024-05-20 14:20 | NUR.NOTE ---
Nursing Note: Pt brother came and retrieved all of patients belongings- wheelchair, bag of blankets, slide board, keys, cell phone, and clothing.
== END 2024-05-20 09:21 | disposition expired ==
PROVIDERS: Emergency Provider Student in an Organized Health Care Education/Training Program; PCP Family Medicine
DX: I46.2 Cardiac arrest due to underlying cardiac condition (principal); A41.9 Sepsis, unspecified organism; I47.20 Ventricular tachycardia, unspecified; E86.0 Dehydration; R11.2 Nausea with vomiting, unspecified
CPT/HCPCS: 80053; 83690; 84145; 87040; 87077; 93005; 96365; 96375; 99291; 83605; 85025; 93010; J2405; J2543